=== PATIENT | female | born 1965 | race Caucasian/White ===

== ENCOUNTER 2017-11-23 11:11 | Inpatient (IN) | payer OTHER ==
[~2017-11-23] VITALS: Ht 172.7 cm; Wt 138.5 kg
[2017-11-23 11:38] LABS: BASOPHILS % (AUTO) 0.4 % (0.0-2.0); EOSINOPHILS # (AUTO) 0.3 /CMM (0.0-0.7); EOSINOPHILS % (AUTO) 2.7 % (0.0-6.0); HEMATOCRIT 47 % (33-45); HEMOGLOBIN 15.6 g/dL (11.5-14.8); LYMPHOCYTES # (AUTO) 2.4 /CMM (0.8-4.8); LYMPHOCYTES % (AUTO) 22.6 % (20.0-44.0); MEAN CORPUSCULAR HEMOGLOBIN 26 PG (26.0-33.0); MEAN CORPUSCULAR HGB CONC 33 g/dl (31.0-36.0); MEAN CORPUSCULAR VOLUME 78 fL (82-100); MONOCYTES # (AUTO) 0.7 /CMM (0.1-1.30); MONOCYTES % (AUTO) 6.9 % (2.0-12.0); NEUTROPHILS # (AUTO) 7.4 /CMM (1.8-8.9); NEUTROPHILS % (AUTO) 67.4 % (43.0-81.0); PLATELET COUNT (AUTO) 279 /CMM (150-450); RDW COEFFICIENT OF VARIATION 13.5 (11.5-15.0); RED BLOOD CELL COUNT(AUTO) 6.07 MIL/uL (4.0-5.2); WHITE BLOOD COUNT (AUTO) 10.8 K/uL (4.3-11.0)
[2017-11-23 11:50] LABS: CALCIUM, SERUM 9.6 mg/dL (8.5-10.1); CARBON DIOXIDE 31 mmol/L (21-32); CHLORIDE 101 mmol/L (98-107); CREATININE 0.7 mg/dL (0.6-1.3); GLUCOSE 108 mg/dL (74-106); POTASSIUM 4.1 mmol/L (3.5-5.1); SODIUM SERUM 137 mmol/L (136-145); UREA NITROGEN, BLOOD 11 mg/dL (7-18)
[2017-11-23 11:54] LABS: INR 0.89 (0.85-1.15)
[2017-11-23 11:57] LABS: TROPONIN I < 0.017 ng/mL (0.00-0.056)
[2017-11-23] MEDS ORDERED: LORAZEPAM INJ 2 MG/ML VIAL IV ONE (13:00)
[2017-11-23] MEDS ORDERED: LORAZEPAM INJ 2 MG/ML VIAL ONE ×2 (13:06→13:10)
[2017-11-23 16:00] VITALS: BP 156/85
[2017-11-23 16:16] VITALS: BP 156/85
[2017-11-23] MEDS ORDERED: HYDROCODONE/APAP 5/325MG 1 EACH TABLET PO PRN (18:30)
[2017-11-23] MEDS ORDERED: ONDANSETRON HCL/PF 4 MG/2 ML VIAL IVP PRN (18:30)
[2017-11-23] MEDS ORDERED: ZOLPIDEM TARTRATE 5 MG TABLET PO PRN (18:30)
[2017-11-23] MEDS ORDERED: ENOXAPARIN SODIUM 40 MG/0.4 ML DISP.SYRIN SQ SCH (18:30)
[2017-11-23] MEDS ORDERED: ACETAMINOPHEN 325 MG TABLET PO PRN (18:30)
[2017-11-23 20:29] VITALS: BP 164/82
[2017-11-23] MEDS ORDERED: LORAZEPAM 1 MG TABLET PO PRN (21:00)
[2017-11-24 00:21] VITALS: BP 160/74
[2017-11-24] MEDS: ALBUTEROL FS 2.5 MG/0.5 ML VIAL.NEB NEB PRN ×2 (01:02→07:54)
[2017-11-24] MEDS: IPRATROPIUM NEB FS 0.5 MG/2.5 ML AMPUL.NEB NEB PRN ×2 (01:02→07:54)
[2017-11-24 04:00] VITALS: BP 137/78
[2017-11-24 07:11] LABS: BASOPHILS % (AUTO) 0.3 % (0.0-2.0); EOSINOPHILS # (AUTO) 0.3 /CMM (0.0-0.7); EOSINOPHILS % (AUTO) 2.9 % (0.0-6.0); HEMATOCRIT 44 % (33-45); HEMOGLOBIN 14.6 g/dL (11.5-14.8); LYMPHOCYTES # (AUTO) 2.5 /CMM (0.8-4.8); LYMPHOCYTES % (AUTO) 25.8 % (20.0-44.0); MEAN CORPUSCULAR HEMOGLOBIN 27 PG (26.0-33.0); MEAN CORPUSCULAR HGB CONC 34 g/dl (31.0-36.0); MEAN CORPUSCULAR VOLUME 80 fL (82-100); MONOCYTES # (AUTO) 0.9 /CMM (0.1-1.30); MONOCYTES % (AUTO) 9.2 % (2.0-12.0); NEUTROPHILS % (AUTO) 61.8 % (43.0-81.0); PLATELET COUNT (AUTO) 261 /CMM (150-450); RDW COEFFICIENT OF VARIATION 14.5 (11.5-15.0); RED BLOOD CELL COUNT(AUTO) 5.48 MIL/uL (4.0-5.2); WHITE BLOOD COUNT (AUTO) 9.7 K/uL (4.3-11.0)
[2017-11-24 07:19] LABS: ALBUMIN 3.5 g/dL (3.4-5.0); BILIRUBIN,TOTAL 0.5 mg/dL (0.2-1.0); CALCIUM, SERUM 9.2 mg/dL (8.5-10.1); CREATININE 0.6 mg/dL (0.6-1.3); PHOSPHORUS 4.4 mg/dL (2.5-4.9); POTASSIUM 4.1 mmol/L (3.5-5.1); TOTAL PROTEIN, SERUM 7.1 g/dL (6.4-8.2)
[2017-11-24 07:24] LABS: THYROID STIMULATING HORMONE 2.046 uIU/mL (0.358-3.74)
[2017-11-24] MEDS ORDERED: PANTOPRAZOLE 40 MG TABLET.DR PO SCH (07:30)
[2017-11-24 07:57] VITALS: BP 130/83
[2017-11-24] MEDS ORDERED: ATORVASTATIN 10 MG TABLET PO SCH (09:00)
[2017-11-24] MEDS ORDERED: ASPIRIN EC 81 MG TABLET.DR PO SCH (09:00)
[2017-11-24] MEDS ORDERED: ASPI-605 PO (10:53)
== END 2017-11-24 12:35 | disposition home or self-care (01) | DRG 203 ==
LOC: ER 11:12 → TELE 15:01 → MED 11-24 09:32
PROVIDERS: ADMIT Nurse Practitioner Acute Care; ATTEND Nurse Practitioner Acute Care
DX: M94.0 Chondrocostal junction syndrome [Tietze] (principal); E43 Unspecified severe protein-calorie malnutrition; I10 Essential (primary) hypertension; E66.01 Morbid (severe) obesity due to excess calories; Z68.42 Body mass index [BMI] 45.0-49.9, adult; F41.0 Panic disorder [episodic paroxysmal anxiety]; G47.33 Obstructive sleep apnea (adult) (pediatric); F17.210 Nicotine dependence, cigarettes, uncomplicated; F40.240 Claustrophobia
CPT/HCPCS: 36415; 71045-TC; 80048-TC; 80053-TC; 80061-TC; 83735-TC; 83880; 84100-TC; 84443-TC; 84484-TC; 85025-TC; 85378-TC; 85730-TC; 87081-TC; 93307-TC; A4606; J1650; J2060; Z7610

== ENCOUNTER 2018-09-16 12:18 | Emergency (ER) | payer OTHER ==
[~2018-09-16] VITALS: Ht 172.7 cm; Wt 129.3 kg
[~2018-09-16 12:18] MED LIST: ASPI-605 PO
[2018-09-16 12:46] VITALS: BP 145/90
[2018-09-16] MEDS ORDERED: IBUPROFEN 600 MG TABLET PO ONE ×2 (12:55→13:00)
--- NOTE | 2018-09-16 14:15 | NUR ---
Patient discharged to home in stable condition. Written and verbal after care instructions given. Patient verbalizes understanding of instruction.
== END 2018-09-16 14:16 | disposition home or self-care (01) ==
LOC: ER 12:19
DX: S83.8X2A Sprain of other specified parts of left knee, initial encounter (principal); Z90.89 Acquired absence of other organs; Z88.5 Allergy status to narcotic agent; Z88.0 Allergy status to penicillin; Z88.6 Allergy status to analgesic agent; Z88.1 Allergy status to other antibiotic agents; Z79.82 Long term (current) use of aspirin; W01.0XXA Fall on same level from slipping, tripping and stumbling without subsequent striking against object, initial encounter; Y93.89 Activity, other specified; Y92.89 Other specified places as the place of occurrence of the external cause; Y99.8 Other external cause status
CPT/HCPCS: 29505; 73564; 73590; 99283; A4606; Z7610

== ENCOUNTER 2022-01-30 21:52 | Inpatient (IN) | payer OTHER ==
[~2022-01-30] VITALS: Ht 172.7 cm; Wt 111.6 kg
--- NOTE | 2022-01-31 00:30 | NUR ---
Bibfamily c/o fever at home for the past 2-3 days, COLINDRES, n/v,. Upon triage temp 101.2; skin warm to touch. PT A/Ox4. Tolerating R/A at 90% with cough. Connected PT to POX and monitor. Cooling measures in place.
[2022-01-31] MEDS ORDERED: ONDANSETRON HCL/PF 4 MG/2 ML VIAL ONE (00:38)
[2022-01-31] MEDS ORDERED: ACETAMINOPHEN ES 500 MG TABLET ONE (00:39)
[2022-01-31] MEDS ORDERED: IV NS 0.9% 1,000 ML BAG IV ONE (01:00)
[2022-01-31] MEDS ORDERED: ONDANSETRON HCL/PF 4 MG/2 ML VIAL IVP ONE (01:00)
[2022-01-31] MEDS ORDERED: ACETAMINOPHEN ES 500 MG TABLET PO ONE (01:00)
--- NOTE | 2022-01-31 01:14 | NUR ---
R HAND #20G S/L; PATENT AND INTACT. BLOOD, COVID PCR, COVID ANTIGEN SWAB COLLECTED AND SENT TO LAB
[2022-01-31 01:35] LABS: BASOPHILS % (AUTO) 0.2 % (0.0-2.0); EOSINOPHILS % (AUTO) 0.6 % (0.0-6.0); HEMATOCRIT 41 % (33-45); HEMOGLOBIN 13.7 g/dL (11.5-14.8); LYMPHOCYTES # (AUTO) 1.5 K/uL (0.8-4.8); MEAN CORPUSCULAR HGB CONC 33 g/dl (31.0-36.0); MEAN CORPUSCULAR VOLUME 82 fL (82-100); MONOCYTES # (AUTO) 0.9 K/uL (0.1-1.30); MONOCYTES % (AUTO) 17.9 % (2.0-12.0); NEUTROPHILS # (AUTO) 2.6 K/uL (1.8-8.9); NEUTROPHILS % (AUTO) 51.3 % (43.0-81.0); PLATELET COUNT (AUTO) 156 K/uL (150-450); RED BLOOD CELL COUNT(AUTO) 5.04 MIL/uL (4.0-5.2)
[2022-01-31 01:42] LABS: CALCIUM, SERUM 8.3 mg/dL (8.5-10.1); CARBON DIOXIDE 26 mmol/L (21-32); CHLORIDE 104 mmol/L (98-107); GLUCOSE 106 mg/dL (74-106); POTASSIUM 3.9 mmol/L (3.5-5.1); SODIUM SERUM 136 mmol/L (136-145); UREA NITROGEN, BLOOD 11 mg/dL (7-18)
--- NOTE | 2022-01-31 01:48 | NUR ---
URINE COLLECTED AND SENT TO LAB
[2022-01-31 01:54] LABS: ALANINE AMINOTRANSFERASE 28 U/L (12-78); ALBUMIN 3.7 g/dL (3.4-5.0); ALKALINE PHOSPHATASE 97 U/L (46-116); ASPARTATE AMINOTRANSFERASE 29 U/L (15-37); BILIRUBIN,DIRECT 0.1 mg/dL (0.0-0.2); BILIRUBIN,TOTAL 0.2 mg/dL (0.2-1.0); TOTAL PROTEIN, SERUM 7.3 g/dL (6.4-8.2)
--- NOTE | 2022-01-31 02:01 | NUR ---
COVID ANTIGEN POSITIVE; DR. BUTLER AWARE.
[2022-01-31 02:29] LABS: BILIRUBIN,URINE NEGATIVE (NEGATIVE); COLOR,URINE YELLOW (YELLOW); LEUKOCYTE ESTERASE ,URINE TRACE (NEGATIVE); NITRITE, URINE NEGATIVE (NEGATIVE); PH,URINE 6.5 (5.0-8.0); PROTEIN,URINE 30 mg/dl (NEGATIVE); UGLUCOSE NEGATIVE (NEGATIVE); UROBILINOGEN,URINE 0.2 EU/dL (0.2)
[2022-01-31] MEDS ORDERED: VANCOMYCIN 1 GM in IV D5W 250 ML IV ONE (02:30)
[2022-01-31] MEDS ORDERED: AZITHROMYCIN 500 MG in IV D5W 250 ML IV ONE (02:30)
[2022-01-31] MEDS ORDERED: VANCOMYCIN 1 GM VIAL ONE (02:42)
[2022-01-31] MEDS ORDERED: AZITHROMYCIN 500 MG VIAL ONE (02:42)
--- NOTE | 2022-01-31 05:10 | NUR ---
EPIC PANEL PAGED
--- NOTE | 2022-01-31 05:16 | NUR ---
DR. BUTLER ON PHONE CALL WITH DR. PALOMINO REGARDING ADMISSION
[2022-01-31] MEDS ORDERED: ACETAMINOPHEN 325 MG TABLET PO PRN (05:30)
[2022-01-31] MEDS ORDERED: ALBUTEROL FS 2.5 MG/0.5 ML VIAL.NEB NEB PRN (05:30)
[2022-01-31] MEDS ORDERED: MORPHINE SULFATE INJ 2 MG/ML DISP.SYRIN IV PRN (05:30)
[2022-01-31] MEDS ORDERED: ONDANSETRON HCL/PF 4 MG/2 ML VIAL IVP PRN (05:30)
--- NOTE | 2022-01-31 06:35 | NUR ---
ADLS DONE. URINATED WITH BEDSIDE COMMODE.
[2022-01-31 06:57] LABS: BACTERIA,URINE Few /HPF (None Seen); RBC,URINE 21-50 /HPF (0-2); SQUAMOUS EPITHELIAL CELL,UR Moderate /HPF (None Seen)
[2022-01-31] MEDS ORDERED: ACET250T9 PO (06:58)
[2022-01-31] MEDS ORDERED: LOSA100T31 PO (06:58)
--- NOTE | 2022-01-31 07:52 | NUR ---
BED 105. ADMITTING AND NURSE NOTIFIED.
--- NOTE | 2022-01-31 07:57 | NUR ---
CALLED TWICE TO GIVE REPORT, NURSE IS WITH A PATIENT, WILL TRY AGAIN
--- NOTE | 2022-01-31 08:15 | NUR ---
REPORT GIVEN TO CLAUDIA DOBSON FOR MARCUS
[2022-01-31] MEDS ORDERED: IPRATROPIUM NEB FS 0.5 MG/2.5 ML AMPUL.NEB ONE (08:41)
[2022-01-31] MEDS ORDERED: ALBUTEROL FS 2.5 MG/3 ML VIAL.NEB ONE (08:41)
--- NOTE | 2022-01-31 08:50 | NUR ---
BED CHANGE 103. ADMITTING AND NURSE NOTIFIED.
[2022-01-31] MEDS ORDERED: HEPARIN SODIUM, PORCINE 5000 UNITS/1 ML VIAL SQ SCH (09:00)
[2022-01-31] MEDS ORDERED: ASPIRIN EC 81 MG TABLET.DR PO ONE (09:01)
[2022-01-31] MEDS ORDERED: HEPARIN SODIUM, PORCINE 5000 UNITS/1 ML VIAL ONE (09:01)
[2022-01-31] MEDS ORDERED: DEXAMETHASONE 4 MG TABLET ONE (09:02)
[2022-01-31] MEDS: ASPIRIN EC 81 MG TABLET.DR PO SCH (09:15)
[2022-01-31] MEDS: DEXAMETHASONE 4 MG TABLET PO SCH (09:15)
[2022-01-31] MEDS ORDERED: CEFTRIAXONE 1 G in IV D5W 50 ML IV SCH (09:30)
[2022-01-31] MEDS: ENOXAPARIN SODIUM 40 MG/0.4 ML DISP.SYRIN SQ SCH (09:30)
--- NOTE | 2022-01-31 09:47 | NUR ---
TRANSFERRED TO BED 103 IN STABLE CONDITION
--- NOTE | 2022-01-31 09:50 | NUR ---
JINRIKISHA DRIVER ADMITTING NOTES RECEIVED ADMISSION FROM ER. PATIENT A/O X4, ABLE TO MAKE NEEDS KNOWN. ON OXYGEN THERAPY AT 3.5 LPM VIA NASAL CANULA SATURATING 92% AT THIS TIME. VS WNL. IV ACCESS AT L HAND PRESENT AND INTACT. NO COMPLAINS OF PAIN. SAFETY PRECAUTIONS IN PLACE; BED IN LOW POSITION AND LOCKED, RAILS UP X2, CALL LIGHT WITHIN REACH. WILL CONTINUE TO MONITOR PATIENT.
[2022-01-31] MEDS: LOSARTAN POTASSIUM 50 MG TABLET PO SCH (10:00)
[2022-01-31] MEDS: IPRATROPIUM/ALBUTEROL INHALER IH SCH ×3 (11:00→17:28)
[2022-01-31] MEDS ORDERED: LEVOFLOXACIN 500 MG /D5W 100ML 500 MG in PREMIX 1 EA IV SCH (12:00)
--- NOTE | 2022-01-31 14:13 | NUR ---
RN NOTE PATIENT MADE WISHED KNOWN TO US TO NOT BE RESUSCITATED. HOWEVER SHE WOULD LIKE TO BE INTUBATED, IN CASE OF OXYGEN DESATURATION. DR SWEENEY IS AWARE OF HER WISHES AND APPROVED OF THE REQUEST. CODE STATUS HAS BEEN ORDERED
[2022-01-31] MEDS ORDERED: MAGNESIUM CITRATE 296 ML BOTTLE PO ONE (17:00)
--- NOTE | 2022-01-31 18:27 | NUR ---
RN CLOSING NOTE PATIENT IS ALERT AND ORIENTED X 4, SITTING IN BED WATCHING TELEVISION. SHE IS ON 3 LITERS O2 NASAL CANULA WITH O2 SATURATION IN THE 90s. SHE HAS A LEFT HAND SALINE LOCK RUNNING NORMAL SALINE TKO. NO APPARENT SIGNS OF DISTRESS NOTED. BED IS IN LOWEST LOCKED POSITION, CALL LIGHT IS WITHIN REACH TO ENSURE PATIENTS SAFETY. DOOR IS CLOSED AND WARNING SIGNS FOR COVID ISOLATION ARE IN PLACE. WILL ENDORSE TO NIGHTSHIFT RN FOR MARCUS.
--- NOTE | 2022-01-31 19:10 | NUR ---
RN NOTES RECEIVED REPORT FROM MORNING NURSE. PATIENT IN BED A/O X 4 ABLE TO MAKE NEEDS KNOWN. WITH OXYGEN INHALATION AT 3LPM VIA NASAL CANULA SATING 93%. NO SOB NO DISTRESS. WITH IVF ACCES AT R HABD # 20 PATENT FLUSHES WELL. VITAL SIGNS TAKEN AND RECORDED AFEBRILE. PATIENT IS ON ISLOATIOBN FOR + COVID. ALL SAFETY MEASURES IN PLACE AT ALL TIMES. BED ON LOWEST POSITION AND LOCKED. CALL LIGHT WITHIN REACH. WILL CLOSELY MONITOR THE PATIENT
[2022-01-31 20:00] VITALS: BP 107/65
[2022-02-01] VITALS: BP 128/67
[2022-02-01 04:00] VITALS: BP 152/80
[2022-02-01] MEDS: IPRATROPIUM/ALBUTEROL INHALER IH SCH ×2 (06:27)
--- NOTE | 2022-02-01 06:38 | NUR ---
RN NOTES PATIENT REMAINS STABLE THE WHOLE SHIFT. STILL ON OXYGEN INHALATION AT 3 LPM SATING 96% NO SOB NO DISTRESS NOTED AT THIS TIME. ALL DUE MEDS GIVEN ORDERED. ALL NEEDS ATTENDED. FREQUENT VISUAL MONITORING RENDERED. WILL ENDORSED TO MORNING SHIFT FOR MARCUS
[2022-02-01 06:55] LABS: BASOPHILS % (AUTO) 0.2 % (0.0-2.0); HEMATOCRIT 42 % (33-45); HEMOGLOBIN 14.1 g/dL (11.5-14.8); LYMPHOCYTES # (AUTO) 1.7 K/uL (0.8-4.8); LYMPHOCYTES % (AUTO) 32.2 % (20.0-44.0); MEAN CORPUSCULAR HGB CONC 33 g/dl (31.0-36.0); MEAN CORPUSCULAR VOLUME 82 fL (82-100); MONOCYTES # (AUTO) 0.8 K/uL (0.1-1.30); MONOCYTES % (AUTO) 15.3 % (2.0-12.0); NEUTROPHILS # (AUTO) 2.7 K/uL (1.8-8.9); NEUTROPHILS % (AUTO) 52.3 % (43.0-81.0); PLATELET COUNT (AUTO) 170 K/uL (150-450); RED BLOOD CELL COUNT(AUTO) 5.14 MIL/uL (4.0-5.2); WHITE BLOOD COUNT (AUTO) 5.2 K/uL (4.3-11.0)
[2022-02-01 07:24] LABS: ALBUMIN 3.4 g/dL (3.4-5.0); BILIRUBIN,TOTAL 0.3 mg/dL (0.2-1.0); CALCIUM, SERUM 8.6 mg/dL (8.5-10.1); CREATININE 0.7 mg/dL (0.6-1.3); MAGNESIUM 2.7 mg/dL (1.8-2.4); PHOSPHORUS 3.1 mg/dL (2.5-4.9); POTASSIUM 4.4 mmol/L (3.5-5.1); TOTAL PROTEIN, SERUM 7.3 g/dL (6.4-8.2)
--- NOTE | 2022-02-01 07:24 | NUR ---
[employer] PROFESSOR NOTES RECEIVED PT AWAKE ON BED. PATIENT A/O X4, ABLE TO MAKE NEEDS KNOWN. ON OXYGEN THERAPY AT 3 LPM VIA NASAL CANULA SATURATING 98% AT THIS TIME. VS WNL. IV ACCESS AT L HAND G#22 PRESENT AND INTACT. NO COMPLAINS OF PAIN. SAFETY PRECAUTIONS IN PLACE; BED IN LOW POSITION AND LOCKED, RAILS UP X2, CALL LIGHT WITHIN REACH. WILL CONTINUE TO MONITOR PATIENT.
[2022-02-01 08:00] VITALS: BP 145/67
[2022-02-01] MEDS: ASPIRIN EC 81 MG TABLET.DR PO SCH (08:10)
[2022-02-01] MEDS: DEXAMETHASONE 4 MG TABLET PO SCH (08:11)
[2022-02-01 08:18] VITALS: BP 145/67
[2022-02-01] MEDS: LOSARTAN POTASSIUM 50 MG TABLET PO SCH (08:18)
[2022-02-01] MEDS: ENOXAPARIN SODIUM 40 MG/0.4 ML DISP.SYRIN SQ SCH (08:30)
[2022-02-01] MEDS ORDERED: Medication Not On Formulary EA (Losartan Potassium 100 MG) PO SCH (09:00)
[2022-02-01 10:29] LABS: ABG BASE EXCESS -1.2 mmol/L; ABG PCO2 42.8 mmHg (35.0-45.0); ABG PH 7.369 (7.350-7.450); ABG PO2 63.1 mmHg (75.0-100.0); AaDO2 35.4 mmHg; COHb 0.9 % (0.5-1.5); O2Hb 91.2 % (94.0-97.0); SITE, ABG Right Radial; VENT MODE, BG room air
[2022-02-01] MEDS ORDERED: CLOP75TA15 PO (10:33)
[2022-02-01] MEDS ORDERED: DEXA4TAB68 PO (10:33)
[2022-02-01] MEDS ORDERED: LEVO500T90 PO (10:33)
--- NOTE | 2022-02-01 10:44 | NUR ---
RN NOTE ENDORSED ABG'S RESULTS TO DR DOMINGO. RECEIVED ORDER RESPIRATORY RAINES OKAY FOR D/C WITH PLAXOVID FOR 5 DAYS AND DECADRON FOR 10DAYS ISOLATE AT HOME. ORDERS PLACED
--- NOTE | 2022-02-01 11:25 | NUR ---
RN NOTE PATIENTS DISCHARGE INSTRUCTION WERE GIVEN AND ALL QUESTIONS ANSWERED.
--- NOTE | 2022-02-01 12:07 | NUR ---
RN NOTE PATIENT LEFT IN STABLE CONDITION WAS PICKED UP BY FAMILY MEMBER
== END 2022-02-01 12:10 | disposition home or self-care (01) | DRG 137 ==
LOC: ER 21:58 → TRANSITION 01-31 05:51 → TELE1 01-31 08:49
PROVIDERS: ADMIT Internal Medicine; ATTEND Internal Medicine
DX: U07.1 COVID-19 (principal); J96.01 Acute respiratory failure with hypoxia; E66.9 Obesity, unspecified; I10 Essential (primary) hypertension; Z98.890 Other specified postprocedural states; Z88.1 Allergy status to other antibiotic agents; Z88.5 Allergy status to narcotic agent; Z88.0 Allergy status to penicillin; Z88.8 Allergy status to other drugs, medicaments and biological substances; Z86.69 Personal history of other diseases of the nervous system and sense organs; Z68.37 Body mass index [BMI] 37.0-37.9, adult; Z79.82 Long term (current) use of aspirin; N39.0 Urinary tract infection, site not specified; F17.200 Nicotine dependence, unspecified, uncomplicated; J44.9 Chronic obstructive pulmonary disease, unspecified
CPT/HCPCS: 36415; 36600; 71045-TC; 80048-TC; 80053-TC; 80076-TC; 81001; 82803-TC; 83605-TC; 83735-TC; 83880; 84100-TC; 84484-TC; 85025-TC; 85378-TC; 85730-TC; 86140-TC; 87040-TC; 87081-TC; 87086-TC; A4216; A6403; C9803; G0378; J0456; J1644; J1650; J1956; J2270; J2405; J3370; J7030; J7050; J7060; J8540; U0003

== ENCOUNTER 2024-06-01 11:43 | Emergency (ER) | payer OTHER ==
[~2024-06-01] VITALS: Ht 172.7 cm; Wt 120.2 kg
[~2024-06-01 11:43] MED LIST changes: +ACET250T9 PO; +CLOP75TA15 PO; +DEXA4TAB68 PO; +LEVO500T90 PO; +LOSA100T31 PO
[2024-06-01 15:34] VITALS: BP 136/89; TEMP 98.3; O2SAT 97
== END 2024-06-01 16:12 | disposition home or self-care (01) ==
LOC: ER 11:55
DX: M79.605 Pain in left leg (principal); M79.604 Pain in right leg; I10 Essential (primary) hypertension; Z90.89 Acquired absence of other organs; Z88.5 Allergy status to narcotic agent; Z88.1 Allergy status to other antibiotic agents; Z88.0 Allergy status to penicillin; Z98.890 Other specified postprocedural states; Z79.82 Long term (current) use of aspirin
CPT/HCPCS: 93970-TC